=== PATIENT | female | born 1980 | race Caucasian/White ===

== ENCOUNTER 2017-02-23 12:54 | Emergency (ER) | payer BC, OTHER ==
[~2017-02-23] VITALS: Ht 172.7 cm; Wt 82.0 kg
[~2017-02-23 12:54] MED LIST: LOTR30T TOP; PRED20 PO; Z.0.NO CURRENT MEDS
[2017-02-23 13:01] VITALS: BP 118/67; PULSE 106; RESP 16; TEMP 98.6; O2SAT 98
[2017-02-23] MEDS ORDERED: ONDANSETRON ODT 4 MG TAB PO ONE (13:15)
--- NOTE | 2017-02-23 13:23 | PD ---
HPI Chief Complaint: GI Complaint Time Seen by Provider: 13:09 Travel History International Travel<30 days: No Contact w/Intl Traveler<30days: No Traveled to known affect area: No History of Present Illness HPI 36-year-old female presents with intermittent abdominal cramping and nonbloody diarrhea. She denies any specific sick contacts. She denies any other concurrent complaints including vomiting, fever or other acute concerns. She states she's been having diarrhea every couple hours since yesterday night. She feels worse when she moves around. She denies other modifying factors. She states her children ate similar foods to her and are not sick. PFSH Past Medical History Medical History: Denies Significant Hx ?: Not Past Surgical History Section: Yes (X2) Social History Alcohol Use: No Tobacco Use: No Substance Use: No Allergies-Medications (Allergen,Severity, Reaction): Coded Allergies: No Known Allergies (Verified Adverse Reaction, Unknown, 02/23/17) Reported Meds & Prescriptions Reported Meds & Active Scripts Active Bentyl (Dicyclomine HCl) 10 Mg Cap 10 Mg PO TID PRN Zofran Odt (Ondansetron Odt) 4 Mg Tab 4 Mg SL Q6HR PRN Reported Synthroid (Levothyroxine Sodium) 88 Mcg Tab 88 Mcg PO DAILY Review of Systems Except as stated in HPI: all other systems reviewed are Neg Physical Exam Narrative GENERAL: Well-nourished, well-developed patient. Well-appearing SKIN: Warm and dry. HEAD: Normocephalic and atraumatic. EYES: No injection or drainage. ENT: No nasal drainage noted. NECK: Supple, trachea midline. CARDIOVASCULAR: Regular rate and rhythm RESPIRATORY: No increased effort. No accessory muscle use. GASTROINTESTINAL: Abdomen soft, non-tender, nondistended. EXTREMITIES: No edema. NEUROLOGICAL: Awake and alert. Motor and sensory grossly within normal limits. Normal speech. Data Data Last Documented VS Vital Signs Date Time Temp Pulse Resp B/P (MAP) Pulse Ox O2 Delivery O2 Flow Rate FiO2 02/23/17 13:01 98.6 106 16 118/67 (84) 98 Orders Orders Ondansetron Odt (Zofran Odt) (02/23/17 13:15) Oral Rehydration (02/23/17 13:15) Ed Discharge Order (1/16/18 13:58) [facility] Medical Decision Making Medical Screen Exam Complete: Yes Emergency Medical Condition: Yes Medical Record Reviewed: Yes (past history confirmed) Differential Diagnosis Gastroenteritis, gastritis, colitis Narrative Course Will dose with Zofran and orally hydrate. Patient agrees to plan of care Patient denies any new complaints and states that they are feeling better, tolerating oral hydration. all questions answered. Patient knows that follow up is incumbent on them and to return to the emergency room immediately if new or worsening symptoms develop. Patient given strict return precautions, vitals reviewed and are normal, agrees to further workup as an outpatient. Diagnosis Primary Impression: Diarrhea Qualified Codes: R19.7 - Diarrhea, unspecified Additional Impression: Abdominal cramping Patient Instructions: General Instructions Additional Instructions: return as needed, zofran and bentyl as needed, follow with primary next 1-2 days for recheck Med/Other Pt SpecificInfo: Prescription(s) given Scripts Dicyclomine (Bentyl) 10 Mg Cap 10 MG PO TID Y for CRAMPS, #10 CAP 0 Refills Prov: Nhi Orlando MD 02/23/17 Ondansetron Odt (Zofran Odt) 4 Mg Tab 4 MG SL Q6HR Y for Nausea/Vomiting, #10 TAB 0 Refills Prov: Nhi Orlando MD 02/23/17 Disposition: 01 DISCHARGE HOME Condition: Stable Nhi Orlando MD Feb 23, 2017 13:23
[2017-02-23] MEDS ORDERED: SYNT88TA PO (13:37)
[2017-02-23] MEDS ORDERED: ZOFR4TAB3 SL (13:57)
[2017-02-23] MEDS ORDERED: DICY10 PO (13:57)
== END 2017-02-23 14:16 | disposition home or self-care (01) ==
LOC: PHED 12:54
DX: R19.7 Diarrhea, unspecified (principal); R10.9 Unspecified abdominal pain
CPT/HCPCS: 99284